=== PATIENT | male | born 1980 | race Caucasian/White ===

== ENCOUNTER 2025-06-12 09:18 | Outpatient (OUT) | payer OTHER, SELFPAY ==
--- OUTSIDE RECORDS SUMMARY | 2025-05-24 04:30 | XMS_ITS ---
Author Organization [facility] vices Address [address] [place], [place] [id number] Care Team Providers Care Soft Shoe Dancer Name Role Phone SukhVinod Aaron [phone] REASON FOR VISIT Recall (A)- 43 Encounters Encounter Location Date Provider Diagnosis [facility] [address] [place], [place] [id number] 05/24/2025 Vinod Luz Plan Of Treatment Next Appt Details Provider Name:Vinod Luz , 09/04/2025 08:45:00 AM, [address] [place] [address], [phone], Provider Name:Vinod Luz , 12/11/2025 08:45:00 AM, [address] [place] [address], [phone], Progress Notes * Matt STEWARDDOB:1980 (44 yo M)Acc No.[id number]:05/24/2025 Patient:?RICKYJARED Matt :?Vinod Luz DDSDOB:1980???Age:44 Y ???Sex:MaleDate:05/24/2025Phone:[phone]:[address] [phone] Subjective: * Chief Complaints: * 1 . Recall (A)- 43. * Medical History: Objective: * Vitals: Assessment: Plan: * Treatment: * Billing Information: * Visit Code: * Procedure Codes: * Electronic signature of Vinod Luz DDS on 06/12/2025 at 09:25 AM ESTSign off status: Pending * Provider: Dany Luz DDS Date: Generated for Printing/Faxing/eTransmitting on:?06/12/2025 09:25 AM EST
--- OUTSIDE RECORDS SUMMARY | 2025-06-12 09:25 | XMS_ITS | Clinical Summary ---
Author Organization [facility] Address [address] [place] [address], [address] [place] [address] Care Team Providers Care After School Coordinator Name Role Phone Unavailable Primary Care Provider Unavailabl e Social History Tobacco UseTypesPacks/DayYears UsedDateSmoking Tobacco: Never AssessedSex and Gender InformationValueDate RecordedSex Assigned at BirthNot on fileLegal Sex Male09/11/2012 9:58 AM ESTGender IdentityNot on fileSexual OrientationNot on file Plan of Treatment Not on file
--- OUTSIDE RECORDS SUMMARY | 2025-06-12 09:25 | XMS_ITS | Clinical Summary ---
Author Organization [facility] Address [address] [place] [address] Care Team Providers Care Manager Eligibility Name Role Phone Shaikh HENRY Galeana Unavailable [phone] Logan Snow MD Primary Care Provider [phone] Annalise Richter NP Unavailable [phone] Allergies Active AllergyReactionsCriticalityNoted NuyaAbdbutknYalogkaftHebzrynt66/24/2017 Jpwtpuhepjdcw66/19/2018 UNABLE TO THINK STRAIGHT. Sulfamethoxazole-Srcoexwywmqc59/19/2018 Medications MedicationSigDispense QuantityRefillsLast FilledStart DateEnd DateStatus naltrexone ER (Vivitrol) injection Inject 380 mg into the shoulder, thigh, or buttocks 1 (one) timeActive Clindamycin Phosphate foam Apply 1 Application topically 1 (one) time each dayActive BENZOYL PEROXIDE CLEANSER EX Apply 1 Application topically 1 (one) time each dayActive benzoyl peroxide 10 % gel Apply 1 application topically in the morning and 1 application before bedtime. Active Clobetasol Propionate 0.05 % external spray Apply 1 Application topically 1 (one) time per weekActive naloxone (Narcan) 4 mg/0.1 mL nasal spray Administer 4 mg into affected nostril(s) if needed for opioid reversal May repeat every 2-3 minutesif needed, alternating nostrils, until medical assistance becomes available.Active Multiple Vitamin (MULTI VITAMIN MENS PO) Take by mouthActive sertraline (Zoloft) 100 MG tablet Indications:Bipolar 2 disorder (HCC)Take 1.5 tablets (150 mg) by mouth Daily 135 tablet 5Active mirtazapine (Remeron) 45 MG tablet Indications:Psychophysiological insomnia,Bipolar 2 disorder (HCC)Take 1 tablet (45 mg) by mouth at bedtime 90 tablet 5Active cyclobenzaprine (Flexeril) 10 MG tablet Indications:Muscle spasmTake 1 tablet (10 mg) by mouth in the morning and 1 tablet (10 mg) before bedtime. 180 tablet 5Active metoprolol succinate XL (Toprol-XL) 25 MG 24 hr tablet Indications:Panic disorderTake 1 tablet (25 mg) by mouth Daily 90 tablet 5Active QUEtiapine (SEROquel) 100 MG tablet Indications:Bipolar 2 disorder (HCC)Take 1 tablet (100 mg) by mouth in the morning and 1 tablet (100 mg) before bedtime. 180 tablet 5Active ramelteon (Rozerem) 8 MG tablet Indications:Bipolar 2 disorder (HCC),Panic disorderTake 1 tablet (8 mg) by mouth at bedtime 90 tablet 5Active buPROPion XL (Wellbutrin XL) 300 MG 24 hr tablet Indications:Bipolar 2 disorder (HCC)Take 1 tablet (300 mg) by mouth Daily 90 tablet 515Active hydrOXYzine pamoate (Vistaril) 25 MG capsule Indications:Panic disorderTake 1 capsule (25 mg) by mouth every 8 (eight) hours if needed for anxiety 90 capsule 5Active cloNIDine (Catapres) 0.1 MG tablet Indications:Panic disorderTake 1 tablet (0.1 mg) by mouth in the morning and 1 tablet (0.1 mg) before bedtime. 180 tablet 515Active Active Problems ProblemNoted DateDiagnosed DateBlood glucose /09/2025Elevated liver function tests11/08/20247745Doukoensgbay34/26/2025 Assessment & Plan (10/25/2024 6:19 AM EDT): Check labs Muscle spasm10/25/2024OSA (obstructive sleep apnea)10/25/2024 Assessment & Plan (10/25/2024 9:56 AM EDT): You have a diagnosis of obstructive sleep apnea. It is recommended that you wear your PAP device any time while in bed sleeping. Not using the PAP device can increase your risk of elevated/uncontrolled high blood pressure, atrial fibrillation, heart attack, stroke, or sudden . Compliance with PAP:yes How many hours of use per night:7 Do you feel more refreshed in the morning: yes Company that supplies your machine and tubing/filters etc: orders on [employer] Doctor that manages your BOBO: [facility] Bilateral hand pain10/25/2024 Assessment & Plan (10/25/2024 10:03 AM EDT): Needs new floor molder Primary swabrprliecr11/11/2024 Assessment & Plan (10/25/2024 6:15 AM EDT): Please check blood pressure daily and record DASH diet Limit caffeine Take medication as directed Contact office if chest pain, pressure, dizziness, shortness of breath, swelling legs Recommend slow position changes Current meds: metoprolol tartate Assessment & Plan (04/12/2024 11:01 AM EDT): Currently taking Metoprolol succ 25mg Clonidine 0.1mg Checks BP at home; Averages are 120's/70's. Denies orthostatic changes, dizziness, cough, shortness of breath, swelling in extremities. Continue current regimen. Given BP log, advised pt to record BP and bring log back with them to next visit. Bipolar 2 asxletdj86/12/2023 Assessment & Plan (10/25/2024 9:53 AM EDT): Current medications: wellbutrin, sertraline, quetiapine, vistaril prn PHQ 9=2 Assessment & Plan (04/12/2024 10:59 AM EDT): Wellbutrin 300mg Quetiapine 100mg Sertraloine 100mg Mirtazapine 45mg Denies SI/HI Feels he is doing well. Has good support system. Has a sponsor. Needs labwork- states rhuem has done. Will request results. If not will reorder. Assessment & Plan (01/18/2024 9:46 AM EDT): Well controlled. Mood stable. No changes made. No SI/HI No adverse effects reported by patient of seroquel and wellbutirn Check labs before next appt. Assessment & Plan (10/18/2023 9:24 AM EDT): Well controlled. Mood stable. No changes made. No SI/HI No adverse effects reported by patient of seroquel and wellbutirn No evidence of metabolic side effects - normal lipid panel 07/24 Assessment & Plan (07/13/2023 9:46 AM EST): Well controlled. Mood stable. No changes made. Opioid use disorder in pdbidnras62/12/2023 Assessment & Plan (10/25/2024 6:16 AM EDT): Continues with addiction services, does vivatrol shot Assessment & Plan (04/12/2024 10:58 AM EDT): [facility] Takes Vivitrol injection. Doing well. 5 years recovery. Umbilical hernia without obstruction and without janjcrjd90/12/2023 Assessment & Plan (01/18/2024 9:45 AM EDT): Intermittent pain. But self resolves. Seen General Surgery. Normal EGD/colonoscopy. Pt will see general surgeon to discuss surgical repair/reduction of umbilical hernia Assessment & Plan (10/18/2023 9:25 AM EDT): Intermittent pain. But self resolves. Seen General Surgery. Duodenal/jejunal wall thickening noted on CT - was referred to GI, has EGD/colonoscopy pending - scheduled this Wednesday. Assessment & Plan (07/13/2023 9:45 AM EST): Intermittent pain. But self resolves. Seen General Surgery. Duodenal/jejunal wall thickening noted on CT - patient is awaiting GI referral and has an appt in August. Psychophysiological pwmuajuu00/12/2023 Assessment & Plan (10/25/2024 6:15 AM EDT): Current medication Ramelteon 8mg nightly Assessment & Plan (04/12/2024 11:00 AM EDT): Taking Ramelton- prescribed by Maryana Chua, managed by PCP (nm). Feels he is sleeping well now. 7-8 hours per night. Feels well rested. Assessment & Plan (01/18/2024 9:45 AM EDT): Well controlled with Mirtazapine and Ramelteon. No adverse effects. Assessment & Plan (10/18/2023 9:22 AM EDT): Well controlled with Mirtazapine and Ramelteon. Assessment & Plan (07/13/2023 9:45 AM EST): Well controlled with Mirtazapine and Ramelteon. Vkksakg93/12/2023anic ofmvyzjv45/12/2023 Assessment & Plan (10/25/2024 9:53 AM EDT): Current meds: wellbutrin, catapress, vistaril, seroquel, and sertraline VERO 7=3 Assessment & Plan (01/18/2024 9:46 AM EDT): Stable mood. No changes. C/w same regimen. Assessment & Plan (10/18/2023 9:23 AM EDT): Stable mood. No changes. C/w same regimen. Assessment & Plan (07/13/2023 9:46 AM EST): Stable mood. No changes. C/w same regimen. Wellness ibcacrkkpeb07/12/2023 Assessment & Plan (07/13/2023 9:47 AM EST): Doing well overall. No active complaints to offer. Refusing Influenza vaccine. Reviewed medical, surgical and social hx. Reviewed medications. Answered questions and concerns. Labs ordered. Resolved Problems ProblemNoted DateDiagnosed DateResolved DateScreening for hyperlipidemia / Assessment & Plan (07/13/2023 9:46 AM EST): Screen for HLD - on antipsychotcs. Screening for diabetes zslfvewc46/ Assessment & Plan (07/13/2023 9:46 AM EST): Screen for T2DM - on antipsychotics. Encounters DateTypeDepartmentCare NbmuOmirhsaisxs43/21/2025Refill [facility] [address] [place] [phone] Kamla Desai NP Panic bylyiwoq82/18/2025Refill [facility] [address] [place] [phone] Logan Snow MD Bipolar 2 disorder (HCC); Panic disorderfrom Last 3 Months Immunizations ImmunizationAdministration DatesNext DueInfluenza, injectable, quadrivalent, preservative free07/12/2015Influenza, seasonal, injectable, preservative free 08/25/2017Tdap09/19/2018 Family History Medical HistoryRelationNameCommentsHypertensionFatherCancerMaternal Grandmother Heart diseaseMaternal GrandmotherHypertensionMaternal GrandmotherMental illness Maternal GrandmotherNo Known ProblemsMotherRelationNameStatusCommentsFatherAlive Maternal GrandmotherMotherAlive Social History Tobacco UseTypesPacks/DayYears UsedDateSmoking Tobacco: KsnyrxHceyxsmbqz5428 - 1996Passive Smoke Exposure: PastSmokeless Tobacco: Never Tobacco Cessation:Counseling Given: No Alcohol UseStandard Drinks/WeekCommentsNever0 (1 standard drink = 0.6 oz pure alcohol)Humiliation, Afraid, Rape, and Kick questionnaireAnswerDate Recorded Within the last year, have you been afraid of your partner or ex-partner?No 07/06/2023Within the last year, have you been humiliated or emotionally abused in other ways by your partner or ex-partner?No07/06/2023Within the last year, have you been kicked, hit, slapped, or otherwise physically hurt by your partner or ex-partner?No07/06/2023Within the last year, have you been raped or forced to have any kind of sexual activity by your partner or ex-partner?No07/06/2023 Social Connection and Isolation PanelAnswerDate RecordedIn a typical week, how many times do you talk on the phone with family, friends, or neighbors?Never 07/06/2023How often do you get together with friends or relatives?Once a week 07/06/2023How often do you attend restorationism or bahai services?Never07/06/2023o you belong to any clubs or organizations such as restorationism groups, unions, fraternal or athletic groups, or school groups?No07/06/2023How often do you attend meetings of the clubs or organizations you belong to?Never07/06/2023re you , , , , never , or living with a partner?Lmyysvx4707/06/2023Overall Financial Resource Strain (CARDIA)AnswerDate RecordedHow hard is it for you to pay for the very basics like food, housing, medical care, and heating?Not hard at all07/06/2023HQ-2AnswerDate Recorded Patient Health Questionnaire-2 Vpygl114Fininter[facility] - Occupational Stress QuestionnaireAnswerDate RecordedDo you feel stress - tense, restless, nervous, or anxious, or unable to sleep at night because your mind is troubled all the time - these days?To some nwddli3607/06/2023Exercise Vital SignAnswerDate RecordedOn average, how many days per week do you engage in moderate to strenuous exercise (like a brisk walk)?1 day07/06/2023On average, how many minutes do you engage in exercise at this level?0 min07/06/2023Hunger Vital SignAnswerDate RecordedWithin the past 12 months, you worried that your food would run out before you got the money to buymore.Never true07/06/2023 Within the past 12 months, the food you bought just didn't last and you didn't have money to get more.Never true07/06/2023RAPARE - TransportationAnswerDate RecordedIn the past 12 months, has lack of transportation kept you from medical appointments or from getting medications?No07/06/2023In the past 12 months, has lack of transportation kept you from meetings, work, or from getting things needed for daily living?No07/06/2023Housing Stability Vital SignAnswerDate RecordedIn the last 12 months, was there a time when you were not able to pay the mortgage or rent on time?No07/06/2023In the last 12 months, how many places have you lived?In the last 12 months, was there a time when you did not have a steady place to sleep or slept in ashelter (including now)?No 07/06/2023Sex and Gender InformationValueDate RecordedSex Assigned at BirthNot on fileLegal BomCwpw8910/14/2022 8:08 PM EDTGender IdentityNot on fileSexual OrientationNot on file Last Filed Vital Signs Vital SignReadingTime TakenCommentsBlood Nriizknq077/9210/25/2024 9:16 AM EDT Iuhag9522/26/2025 9:16 AM WJKPorcljslwir96.9 ??C (98.4 ??F)10/25/2024 9:16 AM EDTRespiratory Zlxz184310/25/2024 9:16 AM EDTOxygen Rlwkpbjium44%10/25/2024 9:16 AM EDTInhaled Oxygen Concentration--Yhyzaq30.4 kg (186 lb)10/25/2024 9:16 AM EDT Dkklbm820.2 cm (5' 7 )04/12/2024 10:28 AM EDTBody Mass Index29.1309 10:28 AM EDT Plan of Treatment Health MaintenanceDue DateLast DoneCommentsCOVID-19 Vaccine ( season) /, 11/25/2020Influenza RuarprtFisiiktohplp44/24/2018, 07/12/2015Pneumococcal Vaccine: Pediatrics (0 to 5 Years) and At-Risk Patients (6 to 64 Years)Aged OutNo longer eligible based on patient's age to complete this topic Goals GoalPatient Goal TypeAssociated ProblemsRecent ProgressPatient-Stated?Author Help patient manage antidepressant medication Care PlanPatient on antidepressant monitoring Shanique Matamoros Baseline PHQ-9 Care PlanBaseline PHQ-9Shanique Reyes Additional Health Concerns Active ProblemsNoted DateDiagnosed DatePatient on antidepressant monitoring plan 03/19/2025aseline PHQ-9003/19/2025 Insurance Care Teams Team MemberRelationshipSpecialtyStart DateEnd Date Shaikh Galeana MD [address] [place] [phone] PCP - Medical [place] [employer]03/15 Logan Snow MD [address] [place] [address] PCP - GeneralFamily Medicine03/13/24 Annalise Richter NP Nurse PractitionerFamily Medicine03/13/24
--- OUTSIDE RECORDS SUMMARY | 2025-06-12 09:25 | XMS_ITS | Patient Health Record ---
Author Organization [facility] vices Address [address] [place], [place] [address] Care Team Providers Care Air Defense Specialist Name Role Phone Vinod Luz Unavailable [phone] Leola Wheat Unavailable [phone] Allergies No Known Allergies Reason For Referral No Information Medications Medication SIG (Take, Route, Frequency, Duration) Notes Start Date End Date Status Mirtazapine 45 MG 1 tablet at bedtime Orally Onc e a day ActiveMetoprolol Succinate ER 25 MG1 tablet Orally Once a dayActiveAmoxicillin 500 MG1 capsule Orally every 8 hrs; Duration: 5 days10/06/2024Not-Taking QUEtiapine Fumarate 100 MGTAKE 1 TABLET BY MOUTH EVERY MORNING AND EVERY NIGHT AT BEDTIME Oral; Duration: 30 DaysActivecloNIDine HCl 0.1 MGTAKE 1 TABLET BY MOUTH EVERY MORNING AND 1 TABLET EVERY NIGHT AT BEDTIME Oral; Duration: 90 Days ActiveVivitrol 380 MGIntramuscular; Duration: 30 DaysActivehydrOXYzine Pamoate 25 MGOral; Duration: 30 DaysActiveSertraline HCl 100 MGOral; Duration: 90 Days ActiveoxyBUTYninActiveRamelteon 8 MGTAKE 1 TABLET BY MOUTH EVERY NIGHT AT BEDTIME Oral; Duration: 30 DaysActive Social History Tobacco Use: Social History Observation Description Date Details (start date - stop date) Never Smoker NA - NA Tobacco Control (Standard) Question Answer Notes Tobacco use: Nonsmoker Section Notes: Nutrition counseling focusin g on a low sodium and low sugar diet discussed with the patient, as well as appropriate weekly exercise and increased activity as tolerated to work towards a more optimal body mass index for improved overall health. Problems Problem Type SNOMED Code ICD Code Onset Dates Problem Status W/U Status Risk Notes Problem Body mass index 25-29 - overweig ht (101213201) BMI 26.0-26.9,adult (Z68.26) Activeconfirmed Vital Signs Heart Rate 75 /min 06/05/2025 Blood pressure kjcrdkhxe31 mm Hg06/05/2025Height-cm175.26 cm06/05/2025Weight-kg 81.65 kg06/05/20257698Eygvdf01 in06/05/2025lood pressure qeqixeau404 mm Hg 06/05/20253750Uoemhw211 lbs108/05/2024BMI26.58 kg/m206/05/2025 Encounters Encounter Location Date Provider Diagnosis Dental Main [address] [place] [id number] 07/31/2024 Leola Wheat Dental caries into dentine K02.62 ; Necrosis of pulp K04.1 ; Encounter for screening for dental disorders Z13.84 ; Encounter for dental examination and cleaning with abnormal findings Z01.21 and 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 Dental Main [address] [place] [id number] 11/01/2024 Keedrick Crapp BMI 26.0-26.9,adul t Z68.26 and Necrosis of pulp K04.1 Dental Main [address] [place] [id number] 11/14/2024 Keedrick Crapp BMI 26.0-26.9,adul t Z68.26 and Dental caries into dentine K02.62 Dental Main [address] [place] [id number] 11/21/2024 Keedrick Crapp BMI 26.0-26.9,adul t Z68.26 ; Dietary counseling Z71.3 ; Exercise counseling Z71.82 and Encounter for dental examination and cleaning with abnormal findings Z01.21 Dental Main [address] [place] [id number] 02/01/2025 Keedrick Crapp Dental caries into dentine K02.62 Dental Main [address] [place] [address] [id number] 06/05/2025 Keedrick Crapp BMI 26.0-26.9,adul t Z68.26 ; Dental caries into dentine K02.62 ; Encounter for dental examination and cleaning with abnormal findings Z01.21 ; Dietary counseling Z71.3 and Exercise counseling Z71.82 [facility] [address] [place] [id number] 10/06/2024 Vinod Luz Assessments Encounter Date Diagnosis (ICD Code) Assessment Notes Treatment Notes Treatment Clinical Notes Section Notes 11/01/2024 BMI 26.0-26.9,adult (ICD-10 - Z6 8.26) 11/14/2024MI 26.0-26.9,adult (ICD-10 - Z68.26)07/31/2024ental caries into dentine (ICD-10 - K02.62)11/21/2024MI 26.0-26.9,adult (ICD-10 - Z68.26) 02/01/2025Dental caries into dentine (ICD-10 - K02.62)06/05/2025MI 26.0- 26.9,adult (ICD-10 - Z68.26)06/05/2025Dental caries into dentine (ICD-10 - K02.62)11/21/2024Dietary counseling (ICD-10 - Z71.3)11/01/2024Necrosis of pulp (ICD-10 - K04.1)11/14/2024Dental caries into dentine (ICD-10 - K02.62)07/31/2024 Necrosis of pulp (ICD-10 - K04.1)07/31/2024Encounter for screening for dental disorders (ICD-10 - Z13.84)06/05/2025Encounter for dental examination and cleaning with abnormal findings (ICD-10 - Z01.21)11/21/2024Exercise counseling (ICD-10 - Z71.82)06/05/2025Dietary counseling (ICD-10 - Z71.3)07/31/2024 Encounter for dental examination and cleaning with abnormal findings (ICD-10 - Z01.21)11/21/2024Encounter for dental examination and cleaning with abnormal findings (ICD-10 - Z01.21)07/31/2024Irreversible pulpitis (ICD-10 - K04.02) 06/05/2025Exercise counseling (ICD-10 - Z71.82) Plan Of Treatment Next Appt Details Provider Name:Vinod Luz , 09/04/2025 08:45:00 AM, [address] [place] [address], [phone], Provider Name:Vinod Luz , 12/11/2025 08:45:00 AM, [address] [place] [address], [phone], Insurance Providers Payer Name Payer Address Payer Phone Subscriber Number Group Number Insured Name Patient Relationship to Insured Coverage Start Date Coverage End Date [facility] [address] [place], [place] [phone] [id number] Teresa Steward Spouse - patient is the spouse of the insured 4 [employer] [place]CD[place] [address] [address] [place] [id number] Yamil Stewardelf - patient is the [id number] 2024DMedicaid Dental [employer] [address] [place], [place] [id number], JacobSelf - patient is the insured 2025 Medical (General) History Medical History History ICD Code Hypertension
--- OUTSIDE RECORDS SUMMARY | 2025-06-12 09:25 | XMS_ITS | Clinical Summary ---
Author Organization [employer] tem Address [id number] [address] [place] [address] Care Team Providers Care Armored Car Driver Name Role Phone Kamla Desai APRN-DIRECTOR ENVIRONMENTAL Primary Care Provider Allergies Active AllergyReactionsCriticalityNoted DateComments Sulfamethoxazole-Cwekxpoecuql17/19/8804Ujgfpkfzfdaxu93/19/2018 UNABLE TO THINK STRAIGHT. KhcakfxpuObxbinbx70/24/2017 Medications MedicationSigDispense QuantityRefillsLast FilledStart DateEnd DateStatus naltrexone microspheres (VIVITROL IM) Inject into the appropriate muscle.Active sucralfate (CARAFATE) 1 gram tablet 08/08/2019Active cyclobenzaprine (FLEXERIL) 10 mg tablet TAKE ONE TABLET BY MOUTH TWICE A DAY NEEDED FOR MUSCLE SPASMS 60 tablet Active benzoyl peroxide 10 % cleanser APPLY TO AFFECTED AREA(S) DAILY 227 g 05/27/2020Active mirtazapine (REMERON) 15 mg tablet Take 4 tablets (60 mg total) by mouth nightly.Active cloNIDine (CATAPRES) 0.1 mg tablet Take 1 tablet (0.1 mg total) by mouth in the morning and 1 tablet (0.1 mg total) before bedtime.Active sertraline 150 mg capsule Take 150 mg by mouth in the morning.Active buPROPion SR (WELLBUTRIN SR) 100 mg 12 hr tablet Take 1 tablet (100 mg total) by mouth in the morning.Active QUEtiapine (SEROquel) 100 mg tablet Take 1 tablet (100 mg total) by mouth in the morning and 1 tablet (100 mg total) before bedtime.Active ramelteon (ROZEREM) 8 mg tablet Take 1 tablet (8 mg total) by mouth nightly.Active metoprolol succinate XL (TOPROL XL) 25 mg 24 hr tablet Take 1 tablet (25 mg total) by mouth in the morning.Active ketorolac (TORADOL) 10 mg tablet Take 1 tablet (10 mg total) by mouth every 6 (six) hours as needed for pain. 20 tablet 5Active ondansetron ODT (ZOFRAN ODT) 4 mg disintegrating tablet Dissolve 1 tablet (4 mg total) on tongue every 8 (eight) hours as needed for nausea for up to 10 doses. 10 tablet 5Active Active Problems ProblemNoted DateDiagnosed DateSleep apnea, rkslnnxhyva85/29/2019Anxiety 07/07/2017 Encounters DateTypeDepartmentCare CewvPetjetyyudf25/22/2025[facility]phone [facility] Department of [address] [address] Danielle Marvin MD 05/08/2025Telephone [facility] Surgeons [address] [place] [address] [place] [id number] Sade Toledo PA 04/16/20253142Qqhyep09/30/2025 8:18 AM EDT - 03/31/2025 9:58 AM EDTEmergency [facility] [address] [place] [phone] Artie Jimenez MD Hydronephrosis with urinary obstruction due to ureteral calculus (Primary Dx) Discharge Disposition: Home03/31/2025Travelfrom Last 3 Months Immunizations ImmunizationAdministration DatesNext DueInfluenza (IM) Preservative Free 08/25/2017Tdap09/19/2018 Family History Medical HistoryRelationNameCommentsHypertensionFatherCancerMaternal Grandmother LungColon polypsMotherColon cancerPaternal GrandmotherRelationNameStatusComments FatherAliveMaternal GrandmotherMotherAlivePaternal Grandmother Social History Tobacco UseTypesPacks/DayYears UsedDateSmoking Tobacco: FormerCigarettes 05/18/2004 - 05/18/2008Smokeless Tobacco: Never Tobacco Cessation:Counseling Given: Not Answered Comments:Pack a week Alcohol UseStandard Drinks/WeekCommentsNo0 (1 standard drink = 0.6 oz pure alcohol)Social Connection and Isolation PanelAnswerDate RecordedFrequency of Communication with Friends and FamilyMore than three times a week03/29/2019 Frequency of Social Gatherings with Friends and FamilyNot on file03/29/2019 Attends Church Services1 to 4 times per year03/29/2019Active Member of Clubs or CrtfwwxcewiwzGbn50/28/2019Attends Club or Organization MeetingsMore than 4 times per year03/29/2019Marital VcqfokErjoapu64/28/2019AUDIT-CAnswerDate RecordedFrequency of Alcohol ConsumptionMonthly or less03/29/2019Average Number of Drinks1 or Frequency of Binge DrinkingLess than uxglanf1803/29/2019 Overall Financial Resource Strain (CARDIA)AnswerDate RecordedDifficulty of Paying Living ExpensesNot hard at all03/29/2019PHQ-2AnswerDate RecordedTotal Mbiek025Finhighland ridge hospital [place] of Occupational Health - Occupational Stress QuestionnaireAnswerDate RecordedFeeling of StressVery much03/29/2019Exercise Vital SignAnswerDate RecordedDays of Exercise per Week5 days03/29/2019Minutes of Exercise per Azvlhok63 min03/29/2019PRAPARE - TransportationAnswerDate Recorded Lack of Transportation (Medical)No03/29/2019Lack of Transportation (Non-Medical) No03/29/2019ChildcareAnswerDate TjaacpiiDgrsxlytlKxl09/28/2019EmploymentAnswer Date DcsfdhhsEtrucrselgQr39/28/2019Hunger ScreeningAnswerDate RecordedWithin the past 12 months we worried whether our food would run out before we got money to buy more.Never True03/31/2025Within the past 12 months the food we bought just didn't last and we didn't have money to get more.Never True03/31/2025Purpose - LifeAnswerDate RecordedPurpose and direction in vvhzAvhufji38/11/2021Sex and Gender InformationValueDate RecordedSex Assigned at BirthNot on fileLegal Sex Male03/07/2015 11:24 AM EDTGender IdentityNot on fileSexual OrientationNot on file Last Filed Vital Signs Vital SignReadingTime TakenCommentsBlood Awnxqktb097/9203/31/2025 8:22 AM EDT Cxtwh9864/30/2025 9:45 AM VTMCdpyqyiozwj63.8 ??C (98.2 ??F)03/31/2025 8:22 AM EDTRespiratory Htqk280703/31/2025 9:45 AM EDTOxygen Uijxemjero39%03/31/2025 8:22 AM EDTInhaled Oxygen Concentration--Skxlzz52.4 kg (175 lb)03/31/2025 8:22 AM EDT Dwzvdk707.2 cm (5' 7 )03/31/2025 8:22 AM EDTBody Mass Index27.41003/31/2025 8:22 AM EDT Plan of Treatment Health MaintenanceDue DateLast DoneCommentsDepression Djwqusikt48/09/1994Adult BMI Follow Up Plan1999COVID-19 Vaccine ( season)2025 12/23/2020, 11/25/2020Influenza Mpothzy85/, 07/12/2015dult BMI Jsagdyicx82Tobacco Hqopfrxea21DTaP,Tdap and Td Vaccines (2 - Td or Tdap) Medical Devices Not on file Procedures Procedure NamePriorityDate/TimeAssociated DiagnosisCommentsPOCT NURSING URINE MACROSCOPIC KTPshhbtm54/30/2025 9:22 AM EDT ER EXTRA URINE VKSUORARNR14/30/2025 9:08 AM EDT ER EXTRA URINE SABZWNSUPJO59/30/2025 9:08 AM EDT ER EXTRA DPNYQLKOF72/30/2025 9:[address] ABDOMEN AND PELVIS W CSQRHVJC63/30/2025 8:51 AM EDT BLUE ONXBCCL6603/31/2025 8:43 AM EDT RAINBOW RMAKSXPC42/30/2025 8:43 AM EDT BASIC METABOLIC TALGWOOPT34/30/2025 8:42 AM EDT CBC WITH AUTO HCMSKCFSGRORIPNE16/30/2025 8:42 AM EDT from Last 3 Months Results * (ABNORMAL) POCT Nursing Urine Macroscopic UA (03/31/2025 9:22 AM EDT)Component ValueRef RangeTest MethodAnalysis TimePerformed AtPathParkview Community Hospital [facility] Urine Specific Gravity1.0201.010, 1.015, 1.020, 1.0871303/31/2025 9:12 AM EDT [facility] Urine Leukocyte EsteraseNegative Boqnmnhs78/30/2025 9:12 AM [facility] Urine WnwqvnjKtweghkjTogkpktl29/30/2025 9:12 AM [facility] Urine pH7.05.0, 6.0, 6.5, 7.0, 7.5, 8.0, 8.5, 5.508 9:12 AM EDTPKET[facility]ING [facility] Urine Qkbhode02 mg/dL(A)Negative 03/31/2025 9:12 AM EDTPK[facility] Urine Glucose CfqqkfdqFvevyzny65/30/2025 9:12 AM EDTPK[facility] Urine KetonesTrace(A)Qwzhmwsy31/30/2025 9:[address] [facility] Urine Urobilinogen0.2 E.U./dL03/31/2025 9:12 AM [facility] Urine PytylskasWtkozdisZiqbhnsb69/30/2025 9:[address] [facility] Urine Blood/HGBLarge(A)Negative 03/31/2025 9:12 AM [facility] (Source) Anatomical Location / LateralityCollection Method / VolumeCollection Time Received MxhlDsxgf97/30/2025 9:22 AM EDT03/31/2025 9:12 AM EDT Narrative Authorizing ProviderResult TypeResult StatusArtie Jimenez MDPOINT OF CARE TEST ORDERABLESFinal ResultPerforming OrganizationAddressCity/State/ZIP CodePhone Number [address] [place] [address], [place] * Extra Urine [place] (03/31/2025 9:08 AM EDT)ComponentValueRef RangeTest Method Analysis TimePerformed AtPathologist SignatureExtra TubeAuto Resulted 03/31/2025 12:01 PM [facility] (Source) Anatomical Location / LateralityCollection Method / VolumeCollection Time Received TimeUrineUrine specimen collection, clean catch / Kcjhchr4003/31/2025 9:08 AM EDT03/31/2025 11:07 AM EDT Narrative Authorizing ProviderResult TypeResult StatusArtie ROCA ORDERABLES Final ResultPerforming OrganizationAddEncompass Health Rehabilitation Hospital of Sewickleyty/State/ZIP CodePhone Number [address] [place] [address], [place] * Extra Urine Culture (03/31/2025 9:08 AM EDT)ComponentValueRef RangeTest Method Analysis TimePerformed AtPathologist SignatureExtra TubeAuto Resulted 03/31/2025 12:01 PM [facility] (Source) Anatomical Location / LateralityCollection Method / VolumeCollection Time Received TimeUrineUrine specimen collection, clean catch / Ipxzujp4503/31/2025 9:08 AM EDT03/31/2025 11:07 AM EDT Narrative Authorizing ProviderResult TypeResult StatusArtie ROCA ORDERABLES Final ResultPerforming OrganizationAddressty/State/ZIP CodePhone Number [address] [place] [address], [place] * Extra Urine (03/31/2025 9:08 AM EDT)ComponentValueRef RangeTest MethodAnalysis TimePerformed AtPathologist SignatureExtra TubeAuto Hiyaktup98/30/2025 12:01 PM EDTPROMEDICA VALLEYCARE MEDICAL CENTERpecimen (Source)Anatomical Location / LateralityCollection Method / VolumeCollection TimeReceived TimeUrineUrine specimen collection, clean catch / Qydjunp1403/31/2025 9:08 AM EDT03/31/2025 11:07 AM EDT Narrative Authorizing ProviderResult TypeResult StatusArtie ROCA ORDERABLES Final ResultPerforming OrganizationAddressCity/State/ZIP CodePhone Number [facility] [address] [place] [address], [place] * CT abdomen and pelvis with contrast (03/31/2025 8:51 AM EDT)Anatomical Region LateralityModalityBody, Abdomen, Body CoveraN/AComputed TomographySpecimen (Source)Anatomical Location / LateralityCollection Method / VolumeCollection TimeReceived Time03/31/2025 8:53 AM EDT Narrative 03/31/2025 9:[address] ABDOMEN AND PELVIS W CONT HISTORY: RLQ pain COMPARISON STUDY: 06/30/2023 TECHNIQUE: CT scan of the abdomen and pelvis performed with IV no oral contrast. 100 mL of Omnipaque 300 was injected intravenously without complication. Coronal and sagittal reformats generated and reviewed. FINDINGS: LOWER THORAX: Unremarkable. HEPATOBILIARY: No focal aggressive appearing hepatic lesions. No biliary ductal dilatation. Gallbladder is unremarkable. SPLEEN: Unremarkable. PANCREAS: No focal masses or ductal dilatation. ADRENALS: No large adrenal nodules. KIDNEYS/URETERS: ??No aggressive appearing mass lesion. ??Obstructive 3 mm right mid ureteral calculus, causing moderate upstream collecting system dilatation and delayed renal nephrogram. Ipsilateral perinephric bleeding. Punctate nonobstructive additional 2 mm left nephrolithiasis. Bladder: Within normal limits. PELVIC ORGANS: Within normal limits. GI TRACT: No acute bowel obstruction. The appendix is within normal limits. LYMPH NODES: No enlarged lymph nodes. VESSELS: No acute thrombus. No abdominal aortic aneurysm. BONES AND SOFT TISSUES: No suspicious osseous lesion. PERITONEUM/RETROPERITONEUM: No free air or significant free fluid. IMPRESSION: * ??Obstructive 3 mm right mid ureteral calculus, causing moderate upstream collecting system dilatation and delayed renal nephrogram. Neurology consultation recommended. * ??Punctate nonobstructive additional 2 mm left nephrolithiasis. All CT scans at this facility use dose modulation, iterative reconstruction, and/or weight based dosing when appropriate to reduce radiation dose to as low as reasonably achievable. Clinically significant results were instructed to call for clinical service on 03/31/2025 at 9:00 AM. ??This will be documented in [employer] results tracking once complete. Finalized by Adolfo Meeks on 03/31/2025 9:00 AM Procedure Note Adolfo Meeks MD - 03/31/2025 CT ABDOMEN AND PELVIS W CONT HISTORY: RLQ pain COMPARISON STUDY: 06/30/2023 TECHNIQUE: CT scan of the abdomen and pelvis performed with IV no oralcontrast. 100 mL of Omnipaque 300 was injected intravenously withoutcomplication. Coronal and sagittal reformats generated and reviewed. FINDINGS: LOWER THORAX: Unremarkable. HEPATOBILIARY: No focal aggressive appearing hepatic lesions. No biliaryductal dilatation. Gallbladder is unremarkable. SPLEEN: Unremarkable. PANCREAS: No focal masses or ductal dilatation. ADRENALS: No large adrenal nodules. KIDNEYS/URETERS: No aggressive appearing mass lesion. Obstructive 3 mmright mid ureteral calculus, causing moderate upstream collecting systemdilatation and delayed renal nephrogram. Ipsilateral perinephric bleeding.Punctate nonobstructive additional 2 mm left nephrolithiasis. Bladder: Within normal limits. PELVIC ORGANS: Within normal limits. GI TRACT: No acute bowel obstruction. The appendix is within normallimits. LYMPH NODES: No enlarged lymph nodes. VESSELS: No acute thrombus. No abdominal aortic aneurysm. BONES AND SOFT TISSUES: No suspicious osseous lesion. PERITONEUM/RETROPERITONEUM: No free air or significant free fluid. IMPRESSION: * Obstructive 3 mm right mid ureteral calculus, causing moderate upstream collecting system dilatation and delayed renal nephrogram. Neurologyconsultation recommended. * Punctate nonobstructive additional 2 mm left nephrolithiasis. All CT scans at this facility use dose modulation, iterativereconstruction, and/or weight based dosing when appropriate to reduceradiation dose to as low as reasonably achievable. Clinically significant results were instructed to call for clinicalservice on 03/31/2025 at 9:00 AM. This will be documented in [facility] resultstracking once complete. Finalized by Adolfo Meeks on 03/31/2025 9:00 AM Authorizing ProviderResult TypeResult Leela OSBORNEG CT ORDERABLES Final Result * Light Blue Top (03/31/2025 8:43 AM EDT)ComponentValueRef RangeTest Method Analysis TimePerformed AtPathologist SignatureExtra TubeAuto Resulted 03/31/2025 10:02 AM [facility] ([facility]) Anatomical Location / LateralityCollection Method / VolumeCollection Time Received TimeBloodVenous blood / Alyiquj4703/31/2025 8:43 AM EDT03/31/2025 9:01 AM EDT Narrative Authorizing ProviderResult TypeResult Leela STEVENSON BLOOD ORDERABLES Final ResultPerforming OrganizationAddressCity/State/ZIP CodePhone Number [facility] [address] * (ABNORMAL) CBC auto differential (03/31/2025 8:42 AM EDT)ComponentValueRef RangeTest MethodAnalysis TimePerformed AtPathologist JxpqiarevEBY06.2(H)4 - 11 x10E9/L03/31/2025 9:05 AM [facility]ITALRBC Count5.64 4.1 - 5.7 X10E12/L03/31/2025 9:05 AM [facility] Yzckecevuc80.013 - 17 g/dL03/31/2025 9:05 AM [facility]ITALHematocrit50.3(H)39 - 50 %03/31/2025 9:05 AM [facility]ITALMCV8980 - 100 fL03/31/2025 9:05 AM [facility]ITALMCH30.227 - 34 pg03/31/2025 9:05 AM EDTPUNIVERSITY HOSPITALS GENEVA MEDICAL CENTERMCHC33.932 - 36 g/dL03/31/2025 9:05 AM EDTPUNIVERSITY HOSPITALS GENEVA MEDICAL CENTERRDW13.211.5 - 15 %03/31/2025 9:05 AM EDOHIOHEALTH MANSFIELD HOSPITALPlatelet Cjclj030579 - 450 X10E9/L03/31/2025 9:05 AM EDT [facility]ENTERMPV7.27 - 12 fL03/31/2025 9:05 AM EDT [facility]ENTERNeutrophils %87.6%03/31/2025 9:05 AM EDT [facility]ENTERLymphocytes %6.6%03/31/2025 9:05 AM EDT [facility]ENTERMonocytes %5.0%03/31/2025 9:05 AM EDT [facility]osinophils %0.3%03/31/2025 9:05 AM EDT [facility]ENTERBasophils %0.5%03/31/2025 9:05 AM EDT [facility] CENTERNeutrophils Absolute (A)13.3(H)1.5 - 6.6 10*3/03/31/2025 9:05 AM EDOHIOHEALTH MANSFIELD HOSPITALLymphocytes Absolute1.01.0 - 3.5 10*3/03/31/2025 9:05 AM EDTPUNIVERSITY HOSPITALS GENEVA MEDICAL CENTERMonocytes Absolute0.80.0 - 0.9 10*3/uL03/31/2025 9:05 AM EDTPUNIVERSITY HOSPITALS GENEVA MEDICAL CENTEREosinophils Absolute0.00.0 - 0.4 10*3/03/31/2025 9:05 AM EDTPUNIVERSITY HOSPITALS GENEVA MEDICAL CENTERBasophils Absolute0.10.0 - 0.2 10*3/03/31/2025 9:05 AM EDOHIOHEALTH MANSFIELD HOSPITALDifferential TypeAUTOMATED NULQFNXAXQHV07/30/2025 9:05 AM EDKEENAN PRIVATE HOSPITALpecimen (Source)Anatomical Location / LateralityCollection Method / VolumeCollection TimeReceived TimeBloodVenous blood / Kabuoms8603/31/2025 8:42 AM EDT03/31/2025 9:02 AM EDT Narrative Authorizing ProviderResult TypeResult StatusArtie STEVENSON BLOOD ORDERABLES Final ResultPerforming OrganizationAddressCity/State/ZIP CodePhone Number [facility] [address] [facility] [place] [address], * (ABNORMAL) Basic Metabolic Panel (03/31/2025 8:42 AM EDT)ComponentValueRef RangeTest MethodAnalysis TimePerformed AtPathologist UyjlcymopALQCPX898642 - 146 mmol/L03/31/2025 9:15 AM [facility]OSPITALPOTASSIUM 3.83.5 - 5.0 mmol/L03/31/2025 9:15 AM [facility] HZJTBTVQ26413 - 109 mmol/L03/31/2025 9:15 AM [facility]OSPITALCARBON FGSOMKQ1440 - 32 mmol/L03/31/2025 9:15 AM [facility]OSPITALANION GAP85 - 15 mmol/L03/31/2025 9:15 AM [facility]OSPITALBLOOD UREA UZIMZLJT878 - 23 mg/dL03/31/2025 9:15 AM [facility]OSPITALCREATININE1.140.70 - 1.20 mg/dL 03/31/2025 9:15 AM [facility]OSPITALComment:METHOD TRACEABLE TO IDMS STMBHUATYPUGOKW312(H)65 - 99 mg/dL03/31/2025 9:15 AM EDT [facility] CENTERCALCIUM8.68.5 - 10.5 mg/dL03/31/2025 9:15 AM [facility] HOSPITALEGFR Non-Race Qldeeylni39>=60 ml/min/1.73sq.m003/31/2025 9:15 AM [facility] Comment: eGFR not reported due to non-numeric value for Creatinine. Reported eGFR is based on the CKD-EPI 2020 equation that does not use a race coefficient. Specimen (Source)Anatomical Location / LateralityCollection Method / Volume Collection TimeReceived TimeBloodVenous blood / Urvwsct1903/31/2025 8:42 AM EDT 03/31/2025 9:02 AM EDT Narrative Authorizing ProviderResult TypeResult StatusArtie Jimenez MDLAB BLOOD ORDERABLES Final ResultPerforming OrganizationAddressCity/State/ZIP CodePhone Number [facility] [address] [place] [address], from Last 3 Months Insurance Care Teams Team MemberRelationshipSpecialtyStart DateEnd Date Kamla Desai, COLLEGE [employer]THLETE-DIRECTOR ENVIRONMENTAL PCP - GeneralNurse Practitioner12/27/24
--- NOTE | 2025-06-12 09:29 | CT_ITS ---
The [address] [address] Patient Name: NAYLA NUNEZ MRN: [id number] date: 1980 Sex: M Assigned Patient Location: CT Current Patient Location: CT Accession/Order Number: [id number] Exam Date: 06/12/2025 09:32 Report Date: 06/12/2025 10:07 At the request of: DEAN JACOBSON MD Procedure: CT abdomen pelvis wo con CT ABDOMEN AND PELVIS WITHOUT CONTRAST COMPARISON: None CLINICAL DATA: Frequent urination. History of renal and right ureteral stones. Spiral axial unenhanced images were obtained through the abdomen and pelvis This CT exam was performed using one or more following dose reduction techniques: Automated exposure control, adjustment of the mA and/or kV according to patient size, or use of iterative reconstruction technique. Limited cuts through the lung bases show no contributory findings. Assessment of the intra-abdominal organs is slightly limited by the absence of contrast. The gallbladder is contracted. No intrahepatic masses are identified. There are calcified splenic granulomas. The pancreas and adrenal glands show no acute findings. There is minor perinephric fibrofatty stranding. There is a punctate stone at the midpole on the right. There are a few stones at the lower pole of the left kidney measuring up to 4 mm in size. No hydronephrosis is identified. There is a tiny distal left ureteral stone measuring 2 mm in size. There is also a distal right ureteral stone which measures 5 - 6 mm. The abdominal aorta is normal caliber. Small retroperitoneal and mesenteric lymph nodes are visualized. No ascites is seen. There is air and food debris within the stomach. There is a small bowel loop with associated anastomotic suture on the left which is mildly distended. The remaining loops are not disproportionately dilated. There is air and stool along the colon, greater on the right. There is subtle dextroscoliotic curvature and mild degenerative changes at the spine. Images through the pelvis show no appendiceal inflammation. There is no dilated small bowel. There is stool at the sigmoid colon. The rectosigmoid segment is underdistended and there is apparent wall thickening. No diverticular disease is noted. The urinary bladder is not well distended though shows no obvious abnormalities. The prostate is within normal limits for size. There is no ascites. A tiny umbilical hernia is present containing fat CT/CT abdomen pelvis wo con IMPRESSION: BILATERAL NEPHROLITHIASIS AND NONOBSTRUCTING DISTAL URETERAL STONES, RIGHT LARGER THAN LEFT. Impression dictated by: Qing Ny M.D. 06/12/2025 10:07 AM Dictation Location: [place] [address] Electronically authenticated by: [id number] Date: 06/12/2025 10:07
== END 2025-06-12 09:19 | disposition home or self-care (01) ==
LOC: CT 09:22
PROVIDERS: PCP Internal Medicine; Visit Provider Urology
DX: N20.0 Calculus of kidney (principal); N20.1 Calculus of ureter
CPT/HCPCS: 74176